=== PATIENT | male | born 1995 | race Caucasian/White ===

== ENCOUNTER 2019-09-12 12:49 | Emergency (ER) | payer BC, SELFPAY ==
[2019-09-12 12:59] VITALS: BP 141/73; PULSE 108; RESP 18; TEMP 36.4; O2SAT 97
--- NOTE | 2019-09-12 13:03 | ED.NAVMDI ---
HPI - Nausea/Vomiting/Diarrhea General Chief complaint: Nausea/Vomiting/Diarrhea Stated complaint: n/v Time Seen by Provider: 09/12/19 12:51 Source: patient Mode of arrival: ambulatory Limitations: no limitations History of Present Illness HPI Narrative: A 23 y/o male pt presents to the ED with c/o N/V/D that began this morning when he woke up. Pt notes having acid reflux and heartburn x 1 week. He states that he had pizza and cereal last night before bed and he awoke with N/V/D. He notes that he has had emesis x 4 and diarrhea x 1 today, and is currently complaining of sweats, body aches, nausea in the ED bed. Pt denies being around any sick contacts and denies any fever, ABD pain or dysuria. Pt denies any significant PMHx and notes that he sometimes uses marijuana. He notes taking Imodium for his diarrhea prior to arrival. MD elicited complaint: nausea, vomiting and diarrhea Onset (ago): hour(s) Associated nausea: Yes Associated abdominal pain: No Context: other (acid reflux and heartburn x 1 week) Associated symptoms: myalgias, diaphoresis, nausea/vomiting and other (diarrhea) Treatment prior to arrival: immodium Related Data Home Medications Medication Instructions Recorded Confirmed dextroamphetamine-amphetamine 09/12/19 famotidine 09/12/19 omeprazole 09/12/19 venlafaxine mg PO 09/12/19 Allergies Allergy/AdvReac Type Severity Reaction Status Date / Time No Known Allergies Allergy Verified 09/12/19 13:04 Review of Systems Review of Systems: All systems reviewed & are unremarkable except as noted in HPI and below Constitutional: Constitutional: Reports body ache(s), Reports excessive sweating and Denies fever(s) Gastrointestinal: Gastrointestinal: Denies abdominal pain, Reports heartburn (x 1 week), Reports diarrhea (x1), Reports nausea, Reports vomiting (x4) and Reports other (acid reflux x 1 week) Genitourinary: Genitourinary: Denies dysuria [facility] Past Medical History Medical History (Updated 09/12/19 @ 16:34 by Sharan Jorgensen MD) No significant past medical history Surgical History Surgical History (Updated 09/12/19 @ 14:38 by Cash Huang [facility]) History of wisdom tooth extraction Social History Social History ([facility] 09/12/19 @ 14:[facility] Substance use: current Substance use type: marijuana Gender identity (if verbalized by the patient): Male Exam Narrative: Exam Narrative: GENERAL: Uncomfortable-appearing, well-nourished, and in no acute distress. HEAD: Normocephalic, atraumatic. ENT: Mucous membranes moist. CHEST: Clear to auscultation. No respiratory distress. HEART: Tachycardic and regular. Normal peripheral pulses. ABDOMEN: Soft, nontender, nondistended. EXTREMITIES: Normal range of motion. No edema. SKIN: Warm, diaphoretic, no rash. NEURO: Alert and oriented x3. Course Course Emergency Course: Patient has been hydrated with 2 L of IV fluid. Tolerating food/fluid orally. Discharge home. Vital Signs Vital signs: Vital Signs Temperature 97.5 F L 09/12/19 12:59 Pulse Rate 108 H 09/12/19 12:59 Respiratory Rate 18 09/12/19 12:59 Blood Pressure 141/73 H 09/12/19 12:59 Pulse Oximetry 97 09/12/19 12:59 Temperature 97.5 F L 09/12/19 12:59 Pulse Rate 104 H 09/12/19 15:24 Respiratory Rate 18 09/12/19 15:24 Blood Pressure 150/70 H 09/12/19 15:24 Pulse Oximetry 97 09/12/19 15:24 MDM - Nausea/Vomiting/Diarrhea Lab Data Result diagrams: 09/12/19 13:02 09/12/19 13:02 Labs: Lab Results 09/12/19 09/12/19 Range/Units 13:02 13:02 WBC 12.5 H (4.5-10.0) K/mm3 RBC 6.00 (4.6-6.20) M/mm3 Hgb 18.5 H (14.0-18.0) g/dL Hct 51.5 (42.0-52.0) % MCV 85.8 (80-100) fl MCH 30.8 (26-34) pg MCHC 35.9 (32-36) g/dl RDW 11.8 (11.5-14.5) % Plt Count 326 (150-375) k/mm3 MPV 8.7 (7.4-10.4) fl Immature Gran % (Auto) 0.5 (0-0.5) % Neut % (Auto) 84.9 H
[2019-09-12 13:06] LABS: Basophils Absolute Auto 0.1 K/mm3 (0.0-0.1); Basophils Percent Auto 0.4 % (0.2-1.2); Eosinophils Absolute Auto 0.1 K/mm3 (0-0.3); Eosinophils Percent Auto 0.5 % (0-4.4); Hematocrit 51.5 % (42.0-52.0); Hemoglobin 18.5 g/dL (14.0-18.0); Immature Granulocyte Absolute 0.06 K/mm3 (0.00-0.031); Immature Granulocyte Percent A 0.5 % (0-0.5); Lymphocytes Absolute Auto 0.88 K/mm3 (0.9-3.2); Mean Corpuscular HGB Conc 35.9 g/dl (32-36); Mean Corpuscular Hemoglobin 30.8 pg (26-34); Mean Corpuscular Volume 85.8 fl (80-100); Mean Platelet Volume 8.7 fl (7.4-10.4); Monocytes Absolute Auto 0.8 K/mm3 (0.1-0.6); Monocytes Percent Auto 6.7 % (2.6-8.5); Neutrophils Absolute Auto 10.7 K/mm3 (1.3-6.7); Neutrophils Percent Auto 84.9 % (45.5-73.1); Platelet Count Result 326 k/mm3 (150-375); Red Cell Distribution Width 11.8 % (11.5-14.5); White Blood Count 12.5 K/mm3 (4.5-10.0)
[2019-09-12] MEDS: SODIUM CHLORIDE 0.9% IV 1,000 ML 999 ML IV CONT ×2 (13:18→15:23)
[2019-09-12] MEDS: DICYCLOMINE HCL INJ 20 MG/2 ML VIAL IM (13:18)
[2019-09-12] MEDS: ONDANSETRON INJ 4 MG/2 ML VIAL IV PUSH (13:18)
[2019-09-12 13:19] LABS: Alanine Aminotransferase 42 U/L (4-50); Albumin Level 4.6 g/dL (3.5-5.1); Alkaline Phosphatase 78 U/L (38-126); Aspartate Amino Transferase 37 U/L (17-59); Blood Urea Nitrogen 18 mg/dL (9-20); Calcium 9.4 mg/dL (8.4-10.2); Carbon Dioxide 17 mmol/L (22-30); Chloride 108 mmol/L (98-107); Estimated CRCL calculation 130 ml/min; Estimated Glomerular Filt Rate > 60; Glucose 134 mg/dL (75-110); Lipase 157 U/L (23-300); Potassium 3.7 mmol/L (3.4-5.0); Sodium 139 mmol/L (137-145)
[2019-09-12 14:23] VITALS: BP 121/77; BP 130/65; PULSE 102; PULSE 98
[2019-09-12 14:24] VITALS: BP 110/67; PULSE 121
--- NOTE | 2019-09-12 14:24 | PC.NURSE ---
pt tried to urinate, unable at this time, i told him i would have him try again after his bag of fluids were empty and if he couldn't then we would cath him
--- NOTE | 2019-09-12 15:23 | PC.NURSE ---
Patient refusing straight cath, Dr. Jorgensen notified and verbal order recieved to administer another li of fluids and PO challenge. Patient given juice and crackers at this time. Will monitor
[2019-09-12 15:24] VITALS: BP 150/70; PULSE 104; RESP 18; O2SAT 97
[2019-09-12 16:51] LABS: Add Urine Microscopic? YES; Appearance Urine Clear (Clear); Bilirubin Urine Negative (Negative); Blood Urine Negative (Negative); Color Urine Yellow (Yellow); Glucose Urine UA Negative (Negative); Ketones Urine Trace mg/dL (Negative); Leukocyte Esterase Ur Negative LEU/UL (Negative); Mucus Urine Rare /lpf; Nitrate Urine Negative (Negative); Protein Urine Negative (Negative); Specific Grav Ur 1.027 (1.001-1.035); Squamous Epithelial Cell Urine Rare /hpf (Few); Urobilinogen Urine Negative mg/dL (<2.0); WBC Urine 0-3 /hpf
--- NOTE | 2019-09-18 08:46 | PC.NURSE ---
LATE ENTRY This note is being entered to document information to the patient's record. The following information was omitted on [09/12/2019 end time of NS at 1623 of 1 Li.
== END 2019-09-12 17:12 | disposition home or self-care (01) ==
PROVIDERS: Emergency Medicine; Emergency Provider Emergency Medicine
DX: K52.9 Noninfective gastroenteritis and colitis, unspecified (principal)
CPT/HCPCS: 36415; 80053; 81001; 83690; 85025; 96361; 96372; 96374; 99284; J0500; J2405; J7030

== ENCOUNTER 2022-06-14 18:17 | Emergency (ER) | payer BC, SELFPAY ==
--- NOTE | ~2022-06-14 | CT_ITS ---
EXAMINATION: CT BRAIN W/O DATE: 06/14/2022 18:56 INDICATION: Tinnitus. Left-sided hearing loss. TECHNIQUE: Computed tomography (CT) of the head was performed without intravenous contrast. The dose- length product was 605.33 mGy-cm. Automated exposure control and iterative reconstruction technique w ere employed. COMPARISON: No prior studies for comparison. FINDINGS: Normal brain parenchymal volume for age. Normal miller-white differentiation. No acute intrac ranial hemorrhage, infarction, mass or mass effect. No ventriculomegaly or midline shift. Midline sagittal images demonstrate a normal corpus callosum, c raniovertebral junction and sella turcica. Basilar cisterns are patent. Paranasal sinuses and mastoids are pneumatized. No depressed skull fractures. IMPRESSION: 1. No acute intracranial abnormality. Reviewed, dictated and finalized at location A. GER EVENT
[2022-06-14 18:19] VITALS: BP 136/85; PULSE 111; RESP 18; TEMP 36.8; O2SAT 97
--- NOTE | 2022-06-14 18:59 | ED.EAR ---
HPI - Ear Problem General Chief complaint: Ear Stated complaint: Left Ear Hearing Loss Time Seen by Provider: 06/14/22 18:28 Source: patient Mode of arrival: ambulatory Limitations: no limitations History of Present Illness HPI Narrative: This is a 26 year old male that presents to the ER for hearing loss ongoing over the last year. Reports he has been barely able to hear out of his left ear. He has not seen his PCP or ENT for this yet. Reports over the weekend his hearing acutely decreased again which prompted him to be seen. Reports associated mild aching pain and at times he has tinnitus. Denies fever, abnormal drainage, recent barotrauma or loud noise exposure. Related Data Home Medications Medication Instructions Recorded Confirmed dextroamphetamine-amphetamine 10 09/11/ mg tablet fluticasone propionate 50 intranasal 06/14/22 mcg/actuation nasal spray,suspension prednisone 20 mg tablet mg 06/14/22 Allergies Allergy/AdvReac Type Severity Reaction Status Date / Time No Known Allergies Allergy Verified 06/14/22 18:27 Review of Systems Review of Systems: CONSTITUTIONAL: Denies fever ENT: Reports otalgia. Denies congestion RESPIRATORY: Denies cough NEUROLOGIC: Denies headache, numbness, or weakness. All systems reviewed & are unremarkable except as noted in HPI and below PMFSH Past Medical History Medical History (Updated 06/14/22 @ 19:33 by Vidhi Henriquez PA-C) History of ADHD Surgical History Surgical History (Updated 09/12/19 @ 14:38 by Cash Huang [facility]) History of wisdom tooth extraction Social History Social History (Updated 09/12/19 @ 14:38 by Cash Huang [facility]) Substance use: current Substance use type: marijuana Gender identity (if verbalized by the patient): Male Exam Narrative: GENERAL: Well-appearing, well-nourished, and in no acute distress. HEAD: Normocephalic, atraumatic. EYES: PERRLA and EOMI. ENT: Nares clear, no rhinorrhea or epistaxis. Mucous membranes moist. Oropharynx without tonsillar hypertrophy exudate or other lesions. Bilateral external auditory canals are normal. Bilateral TMs pearly miller, non-bulging NECK: Supple. No adenopathy or masses. CHEST: Clear to auscultation. No respiratory distress. No wheezes rales or rhonchi HEART: Regular rate and rhythm. No murmur heard. Normal peripheral pulses. EXTREMITIES: Normal range of motion. No edema. SKIN: Warm, dry, no rash. NEURO: No focal deficits. Alert and oriented x3. Cranial nerves II through XII grossly intact aside from CN VIII PSYCH: Normal mood and affect Course Vital Signs Vital signs: Vital Signs Temperature 98.3 F 06/14/22 18:19 Pulse Rate 111 H 06/14/22 18:19 Respiratory Rate 18 06/14/22 18:19 Blood Pressure 136/85 06/14/22 18:19 Pulse Oximetry 97 06/14/22 18:19 Oxygen Delivery Room Air 06/14/22 18:19 Temperature 98.3 F 06/14/22 18:19 Pulse Rate 111 H 06/14/22 18:19 Respiratory Rate 18 06/14/22 18:19 Blood Pressure 136/85 06/14/22 18:19 Pulse Oximetry 97 06/14/22 18:19 Oxygen Delivery Room Air 06/14/22 18:19 Medical Decision Making MDM Narrative Medical decision making narrative: Patient presents the emergency department for worsening left-sided hearing loss ongoing over the last year. Patient is afebrile and nontoxic-appearing. He is neurologically intact. He denies any dizziness. He has a normal external auditory canal/TM on exam. CT scan of his brain is without concerning findings. He was instructed he should have follow-up with ENT for further evaluation of his hearing loss. He was given warnings to return to the ER Vital Signs Vital Signs: Vital Signs Temperature 98.3 F 06/14/22 18:19 Pulse Rate 111 H 06/14/22 18:19 Respiratory Rate 18 06/14/22 18:19 Blood Pressure 136/85 06/14/22 18:19 Pulse Oximetry 97 06/14/22 18:19 Oxygen Delivery Room Air 06/14/22 18:19 Temperature 98.3 F 06/14
== END 2022-06-14 20:25 | disposition home or self-care (01) ==
PROVIDERS: Emergency Provider Physician Assistant
DX: H91.92 Unspecified hearing loss, left ear (principal); F90.9 Attention-deficit hyperactivity disorder, unspecified type
CPT/HCPCS: 70450; 99284